=== PATIENT | male | born 1935 | race Caucasian/White ===

== ENCOUNTER → 2020-09-14 09:09 | Outpatient (CLI) | payer MEDICARE, OTHER, SELFPAY ==
--- NOTE | 2020-09-14 09:15 | DI.RAD.S_ITS ---
PROCEDURE: XR CHEST 2V INDICATIONS: cough TECHNIQUE: 2 views of the chest were acquired. COMPARISON: None. FINDINGS: Surgical changes and devices: None. Lungs and pleura: Lungs are clear. No pleural effusions or pneumothorax. Mediastinum: Mediastinal contours are normal. Heart size is normal. Bones and chest wall: No suspicious bony abnormalities. Soft tissues appear unremarkable. IMPRESSION: Normal for age, source of current cough symptoms is not seen. Dictated by: Jun Galvez M.D. on 09/14/2020 at 11:35 Approved by: Jun Galvez M.D. on 09/14/2020 at 11:35
== END ==
PROVIDERS: Family Provider Family Medicine; PCP Family Medicine; Referring Provider Internal Medicine; Visit Provider Internal Medicine
DX: R05 Cough (principal); D47.9 Neoplasm of uncertain behavior of lymphoid, hematopoietic and related tissue, unspecified
CPT/HCPCS: 71046

== ENCOUNTER → 2021-06-23 14:30 | Outpatient (CLI) | payer MEDICARE, OTHER, SELFPAY ==
--- NOTE | 2021-06-23 14:37 | DI.CT.S_ITS ---
PROCEDURE: CT SOFT TISSUE NECK W CON INDICATIONS: Squamous cell carcinoma of skin of scalp and neck TECHNIQUE: Helical axial CT of the neck was obtained after intravenous contrast injection and reformatted in multiple planes. Radiation dose reduction was achieved utilizing automated exposure control and/or parameter adjustment according to patient's size. COMPARISON: None. FINDINGS: Skull Base: The visualized intracranial contents, skull, and orbits are unremarkable. Visualized paranasal sinuses are clear. Bilateral intraocular lens replacements noted. Pharynx and Larynx: The nasopharyngeal airway is patent and midline. Parapharyngeal soft tissues including palatine tonsils and base of the tongue are normal. Retropharyngeal space unremarkable. Normal appearance of the false and true vocal cords. Muscles and Fascial Planes: Focal skin thickening overlying the left zygomatic arch measures 1.6 x 0.5 cm. Fascial planes are well maintained. No abscess or mass lesion. Lymph Nodes: Left-sided internally necrotic metastatic adenopathy present. There is left intraparotid preauricular node with internal low density and irregular capsular enhancement measuring 1.7 x 1.5 cm. Level 2A and 2B similarly appearing adenopathy measures 2.2 x 1.7 cm and 2.1 x 1.4 cm. Smaller level 3 nodes on the right measure up to 1.1 cm. Vasculature: Moderate calcified atherosclerotic plaque noted involving both the proximal and cavernous portions of both internal carotid arteries. . Submandibular and Parotid Glands: Normal in size and attenuation. Thyroid: Unremarkable. No enlarged or calcified nodules. Bones: No acute fracture. No osteolytic or blastic lesion is evident. Normal bone mineralization. Maxillary edentulous. Dental amalgam artifact arising from the mandibular dentition limits assessment several images. Lung Apices: The visualized lung apices are clear. IMPRESSION: 1. Focal skin thickening over the left zygomatic arch consistent with given history of squamous cell carcinoma. 2. Metastatic adenopathy with internal necrosis, left greater than right Approved by: Tiburcio Warner M.D. on 06/23/2021 at 16:23
--- NOTE | 2021-06-23 14:37 | DI.CT.S_ITS ---
PROCEDURE: CT CHEST W CON INDICATIONS: Squamous cell carcinoma of skin of scalp and neck TECHNIQUE: After the administration of intravenous contrast, 5 mm thick sections acquired from the pulmonary apices to the posterior costophrenic angles. 1 mm axial lung, 5 mm thick coronal and sagittal reformats and 7 mm axial MIP were acquired. For radiation dose reduction, the following was used: automated exposure control, adjustment of mA and/or kV according to patient size. COMPARISON: [facility], CT, NECK/CHEST/ABD/PEL W CONTRAST, 12/07/2016, 10:38. FINDINGS: Image quality: Excellent. Lungs and pleura: No acute air space opacities. A 3 mm solid nodule is seen in the medial left upper lobe (60/3), which is stable when compared to the CT from 12/07/2016 and is considered benign. No pleural effusions or pneumothorax. Central and peripheral airways are patent and normal in caliber. Mediastinum: Heart size is normal. No pericardial effusion. Moderate coronary artery calcifications. No mediastinal or hilar adenopathy by size criteria. Mild to moderate aortic atherosclerotic calcifications. Thoracic aorta and central pulmonary arteries are normal in size. Esophagus is normal in caliber. No hiatal hernia. Bones and chest wall: No suspicious bony lesions. Stable sclerotic focus in the T2 vertebral body. No vertebral body compression fractures. Multilevel degenerative changes in the spine. Chronic left lateral 7th rib fracture. Postop lateral right 10th rib chronic fracture also noted. No axillary or supraclavicular adenopathy by size criteria. Thyroid appears normal. Abdomen: Nonspecific subcentimeter hypodensities in the liver are too small to characterize, but likely represent cysts. Visualized upper abdominal solid organs otherwise appear normal. Upper abdominal bowel loops are normal in caliber. IMPRESSION: 1. No CT evidence of metastatic disease in the chest. 2. Coronary artery and aortic atherosclerosis. Dictated by: Raimundo Askew M.D. on 06/23/2021 at 16:56 Approved by: Raimundo Askew M.D. on 06/23/2021 at 17:04
== END ==
PROVIDERS: Family Provider Family Medicine; PCP Family Medicine; Referring Provider Radiology Radiation Oncology; Visit Provider Radiology Radiation Oncology
DX: C44.42 Squamous cell carcinoma of skin of scalp and neck (principal); I25.10 Atherosclerotic heart disease of native coronary artery without angina pectoris; I70.0 Atherosclerosis of aorta
CPT/HCPCS: 70491; 71260; Q9967